=== PATIENT | female | born 2000 | race Asian ===

== ENCOUNTER 2020-07-01 20:37 | Outpatient (CLI) | payer OTHER ==
[~2020-07-01] VITALS: Ht 154.9 cm; Wt 75.3 kg
[2020-07-01 20:48] VITALS: BP 114/65
[2020-07-01] MEDS ORDERED: LR 1,000 ML IV ONE (22:00)
[2020-07-01 22:25] VITALS: BP 119/60
[2020-07-01] MEDS ORDERED: NITROFURANTOIN (MACROBID) 100 MG CAP PO ONE (22:30)
[2020-07-01 22:49] VITALS: BP 112/58
--- NOTE | 2020-07-01 23:13 | IPNPDOC ---
Obstetrical Progress Note Date of Service Jul 01, 2020 Subjective Mrs. Mcclelland 20yo G1 at 34wks presents with decrease movement. Denies vaginal bleeding, LOF or reg ctx. Also denies dysuria, F/C/N/V or flank pain. O: vss, AF cat 1 tracing, with irreg ctx. gen: well appearing abd: soft, nttp cx: decline exam - IV hydration with ctx spaced out UA: c/w UTI A/P: 20yo G1 at 32 with reassuring status -UTI- Macrobid 100mg BID UC sent -PTL precautions and FKCs. f/u at next OB appt Objective Vital Signs Date Time Temp Pulse Resp B/P (MAP) Pulse Ox O2 Delivery O2 Flow Rate FiO2 07/01/20 22:49 113 17 112/58 (76) 07/01/20 22:48 98.7 Assessment Variability: Moderate Accelerations: Present Decelerations: None Heart Rate Tracing: Category I Tocometer Contractions: Yes Frequency: irregular Assessment and Plan Age: 1 Status: Reassuring UDAY TALBERT MD. Jul 01, 2020 23:13
[2020-07-01] MEDS ORDERED: MACR100C43 PO (23:15)
== END 2020-07-01 22:45 | disposition home or self-care (01) ==
LOC: M LDO 20:37
PROVIDERS: ATTEND Obstetrics & Gynecology
DX: O36.8130 Decreased fetal movements, third trimester, not applicable or unspecified (principal); O23.43 Unspecified infection of urinary tract in pregnancy, third trimester; Z3A.34 34 weeks gestation of pregnancy
CPT/HCPCS: 59025; 81001; 87086; 96374; G0378; G0463